=== PATIENT | female | born 1965 | race Caucasian/White ===

== ENCOUNTER 2017-02-16 10:40 | Emergency (ER) | payer OTHER ==
[2017-02-16] MEDS ORDERED: ALBUTEROL 3 ML DEYVIAL IH ONE (11:08)
[2017-02-16] MEDS ORDERED: methylPREDNISolone SOD SUCC 125 MG/2 ML VIAL IVP ONE (11:08)
[2017-02-16] MEDS ORDERED: IPRATROPIUM/ALBUTEROL 3 ML DEYVIAL IH ONE (11:08)
[2017-02-16] MEDS ORDERED: NS 1,000 ML IV ONE (11:08)
--- NOTE | 2017-02-16 11:09 | EDPHY ---
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 Patient developed which she thought was allergic rhinitis with a flare of her asthma 6 weeks ago. She began taking Advair. Symptoms continue to worsen and she developed a cough and mild sputum production. Patient had a course of azithromycin which briefly improved her symptoms. However, they returned with frequent, hacking cough, mild shortness of breath, and low-grade fevers. She placed herself on oral prednisone but was unable to tolerated secondary to insomnia. She had a negative chest x-ray on and a negative flu swab since symptom onset. This last week she began to feel worse and started a 2nd z-pack on Thursday, 4 days ago. She's had associated dyspnea, chills, fever of 100.4F, and head pain when coughing. Her cough is mostly dry with some intermittent white sputum. She did not improve and started a course of Augmentin yesterday. She continues to take high-dose Advair. No cardiac history, blood clots, or family history of clotting disorders. No chest pain, palpitations, vomiting, diarrhea, urinary complaints, lightheadedness. REVIEW OF SYSTEMS: Aside from elements discussed in the HPI, a comprehensive 10-point review of systems was reviewed and is negative. PAST MEDICAL HISTORY: Asthma, Mirena IUD SOCIAL HISTORY: Internal medicine physician. Nonsmoker. VITAL SIGNS: Reviewed by me GENERAL: Well-developed, well-nourished, pleasant, frequent hacking cough, in no respiratory distress. HEENT: Atraumatic. Eyes: No icterus, no injection. Mouth: moist mucous membranes. No erythema or lesions. Neck: supple with no adenopathy. LUNGS: Clear to auscultation bilaterally, no rhonchi or rales. Wheezy cough. CARDIAC: Tachycardic rate, no rubs, murmurs or gallops. ABDOMEN: Soft, nontender, nondistended, bowel sounds normal. BACK: No CVA tenderness. EXTREMITIES: No trauma. No edema. Range of motion is normal throughout. NEURO: Alert and oriented, grossly nonfocal. SKIN: Warm and dry, no rash. PSYCHIATRIC: Normal mentation, no agitation. Portions of this note were transcribed by a certified court/medical interpreter. I personally performed a history, physical exam, medical decision making, and confirmed accuracy of information the transcribed note. ED Course: This is a normally healthy 51 y/o female who presents with a 6-week history of cough and dyspnea. She has treated herself with increased Advair dosing and multiple rounds of antibiotics without lasting improvement and complains of worsening symptoms over the last week. She had a negative chest x-ray 3 weeks ago. She has a frequent, hacking and wheezing cough on exam, but her breath sounds are clear. She is afebrile here, though she feels warm to the touch. She is tachycardic in the 120 range. Plan for EKG, chest CTA, symptom management, IV, and labs including CBC, CHEM, troponin, d-dimer, BNP, lactic acid, BHCG, and flu swab. Duo neb, 125mg IV Solumedrol, and 1L IV NS administered. The 12 lead EKG was interpreted by myself. EKG shows sinus rhythm rate 94. See hard copy and/or "tracemaster" electronic copy for interpretation. Patient's cough improved after DuoNeb. She has no white count, negative troponin, negative D-dimer. Negative lactic acid. Chest CTA shows nodular infiltrate in the right upper lobe and at the right lung base. This appears most likely to be a partially treated pneumonia. I discussed results with the patient during reassessment. She has not been hypoxemic at any point during her stay here. She feels ready for discharge home and will be given scripts for Levaquin, duo nebs, Tessalon pearls, and prednisone. She understands she needs to be followed closely by pulmonology until her pneumonia has completely resolved. Her course was discussed with Dr. Arenas. Return precautions given. She is comfortable with plan. MDM: Differential diagnosis for the patient's shortness of breath was considered including but not limited to pulmonary infectious processes, COPD exacerbation, pulmonary emboli, pulmonary edema, congestive heart failure, and cardiac causes. Differential diagnosis for the patient's cough was considered including but not limited to viral versus bacterial bronchitis, asthma, COPD, pulmonary emboli, upper respiratory infection, lower respiratory infection, and bronchospasm. - Data Points Imaging Results: Imaging Impressions Chest/Thorax CTA 02/16/17 11:56 Impression: 1. No evidence for pulmonary embolus. 2. Probable resolving pneumonia with residual nodularity in the right lower lobe at the lung base and centrally in the right upper lobe. As there is a right upper lobe area of more focal nodularity recommend following to clear to ensure resolution. Mild underlying bronchitis. Results called and discussed with Tita Mas MD, at 1243 hours 16 Feb 2017. [email or web address] Imaging: Discussed imaging studies w/ call manager Radiologist, I viewed and interpreted images myself Laboratory Results: Laboratory Results 02/16/17 11:20 02/16/17 11:20 02/16/17 02/16/17 02/16/17 11:30 11:20 11:20 WBC RBC Hgb Hct MCV MCH MCHC RDW Plt Count MPV Neut % (Auto) Lymph % (Auto) Sibley % (Auto) Eos % (Auto) Baso % (Auto) Nucleat RBC Rel Count Absolute Neuts (auto) Absolute Lymphs (auto) Absolute Monos (auto) Absolute Eos (auto) Absolute Basos (auto) Absolute Nucleated RBC Immature Gran % Immature Gran # D-Dimer < 0.27 ug/mLFEU ug/mLFEU (0.00-0.50) VBG Lactic Acid Sodium Potassium Chloride Carbon Dioxide Anion Gap BUN Creatinine Estimated GFR Glucose Calcium Troponin I NT-Pro-B Natriuret Pep Beta HCG, Qual NEGATIVE Influenza A & B (PCR) NEGATIVE FOR FLU (NEGATIVE) 02/16/17 02/16/17 02/16/17 11:20 11:20 11:20 WBC 7.02 10^3/uL 10^3/uL (3.80-9.50) RBC 4.05 10^6/uL L 10^6/uL (4.18-5.33) Hgb 12.9 g/dL g/dL (12.6-16.3) Hct 38.4 % % (38.0-47.0) MCV 94.8 fL fL (81.5-99.8) MCH 31.9 pg pg (27.9-34.1) MCHC 33.6 g/dL g/dL (32.4-36.7) RDW 12.3 % % (11.5-15.2) Plt Count 189 10^3/uL 10^3/uL (150-400) MPV 10.1 fL fL (8.7-11.7) Neut % (Auto) 80.8 % H % (39.3-74.2) Lymph % (Auto) 9.7 % L % (15.0-45.0) Sibley % (Auto) 8.5 % % (4.5-13.0) Eos % (Auto) 0.3 % L % (0.6-7.6) Baso % (Auto) 0.4 % % (0.3-1.7) Nucleat RBC Rel Count 0.0 % % (0.0-0.2) Absolute Neuts (auto) 5.67 10^3/uL 10^3/uL (1.70-6.50) Absolute Lymphs (auto) 0.68 10^3/uL L 10^3/uL (1.00-3.00) Absolute Monos (auto) 0.60 10^3/uL 10^3/uL (0.30-0.80) Absolute Eos (auto) 0.02 10^3/uL L 10^3/uL (0.03-0.40) Absolute Basos (auto) 0.03 10^3/uL 10^3/uL (0.02-0.10) Absolute Nucleated RBC 0.00 10^3/uL 10^3/uL (0-0.01) Immature Gran % 0.3 % % (0.0-1.1) Immature Gran # 0.02 10^3/uL 10^3/uL (0.00-0.10) D-Dimer VBG Lactic Acid 1.4 mmol/L mmol/L (0.7-2.1) Sodium 141 mEq/L mEq/L (134-144) Potassium 3.9 mEq/L mEq/L (3.5-5.2) Chloride 103 mEq/L mEq/L (97-110) Carbon Dioxide 28 mEq/l mEq/l (22-31) Anion Gap 10 mEq/L mEq/L (8-16) BUN 15 mg/dL mg/dL (7-23) Creatinine 1.1 mg/dL H mg/dL (0.6-1.0) Estimated GFR 53 Glucose 103 mg/dL H mg/dL (70-100) Calcium 9.5 mg/dL mg/dL (8.5-10.4) Troponin I < 0.012 ng/mL ng/mL (0-0.034) NT-Pro-B Natriuret Pep 51 pg/mL pg/mL (0-125) Beta HCG, Qual Influenza A & B (PCR) Medications Given: Discontinued Medications Albuterol (Proventil Neb) 3 ml IH EDNOW ONE Stop: 02/16/17 11:09 Last Admin: 02/16/17 11:32 Dose: 3 ml Albuterol/Ipratropium (Duoneb) 3 ml IH EDNOW ONE Stop: 02/16/17 11:09 Last Admin: 02/16/17 11:21 Dose: 3 ml Sodium Chloride (Ns) 1,000 mls @ 0 mls/hr IV ONCE ONE PRN Reason: Wide Open Stop: 02/16/17 11:09 Last Admin: 02/16/17 11:21 Dose: 1,000 mls Levofloxacin (Levaquin) 750 mg PO EDNOW ONE PRN Reason: Protocol Stop: 02/16/17 13:06 Last Admin: 02/16/17 13:13 Dose: 750 mg Methylprednisolone Sodium Succinate (Solu-Medrol) 125 mg IVP EDNOW ONE Stop: 02/16/17 11:09 Last Admin: 02/16/17 11:21 Dose: 125 mg General Time Seen by Provider: 02/16/17 10:47 Initial Vital Signs: Initial Vital Signs Temperature (C) 36.8 C 02/16/17 10:41 Heart Rate 126 H 02/16/17 10:41 Respiratory Rate 20 02/16/17 10:41 Blood Pressure 138/81 H 02/16/17 10:41 O2 Sat (%) 94 02/16/17 10:41 O2 Delivery Mode Room Air Allergies/Adverse Reactions: No Known Allergies Allergy (Verified 02/16/17 10:41) Home Medications: Medication Instructions Recorded AZITHROMYCIN [Z-PACK] 250 mg PO DAILY 02/16/17 Amox Tr/Potassium Clavulanate 1 each PO 02/16/17 [Augmentin 1000MG ER Tablet (*)] Benzonatate [Tessalon Pearles (RX)] 100 mg PO TID PRN #20 cap 02/16/17 Fluticasone/Salmeter 250/50Mcg 1 each IH 02/16/17 [Advair 250/50 (*)] Ipratropium/Albuterol [Duoneb (*)] 3 ml IH Q4HRS PRN #20 deyvial 02/16/17 Levonorgestrel [Mirena] 1 each IY 02/16/17 levOFLOXACIN [levAQUIN] 750 mg PO DAILY #10 tab 02/16/17 predniSONE 20 mg PO DAILY #3 tab 02/16/17 Departure - Departure Disposition: Home, Routine, Self-Care Clinical Impression: Cough Pneumonia Qualifiers: Pneumonia type: due to unspecified organism Laterality: right Lung location: upper lobe of lung Qualified Code(s): J18.1 - Lobar pneumonia, unspecified organism Instructions: Pneumonia (ED) Additional Instructions: 1. Take Levaquin as directed. Be sure to complete entire prescription even if you feel better. This medication can cause tendon rupture, so avoid strenuous activity while using it. 2. Use Tylenol and ibuprofen as needed for pain and fever over the next week. 3. Use duo nebulizer treatments as directed for cough and shortness of breath. 4. Take Tessalon pearls as prescribed for cough suppression. 5. Complete prednisone course as prescribed. 6. Follow up with Dr. Arenas, pulmonology, without fail this week. Your pneumonia is nodular in appearance and needs to be followed closely by pulmonology until resolution. 7. Return to the ED for any worsening of condition. Adult Pain & Fever Control: We recommend Acetaminophen (Tylenol) and Ibuprofen (Motrin,Advil) for pain and fever control. When fever is high or pain severe, both drugs can be used at the same time, but at different intervals. Please note the time differences. Your dose is: Acetaminophen 650mg every 4 to 6 hours Ibuprofen 600mg every 6-8 hours with food Note: do not take Acetaminophen with Hydrocodone (Vicodin, Lortab) or Oxycodone (Percocet). These medications also contain Acetaminophen. No more than 3000mg of Acetaminophen should be taken in 24 hours (for an adult). Referrals: ANDREA IRBY [Other] - As per Instructions Cornelius Arenas MD [Medical Doctor] - As per Instructions Prescriptions: Ipratropium/Albuterol [Duoneb (*)] 3 ml IH Q4HRS PRN #20 deyvial PRN Reason: cough Benzonatate [Tessalon Pearles (RX)] 100 mg PO TID PRN #20 cap PRN Reason: Cough levOFLOXACIN [levAQUIN] 750 mg PO DAILY #10 tab predniSONE 20 mg PO DAILY #3 tab Report Scribed for: Tita Mas Report Scribed by: Mirna Gandhi Date of Report: 02/16/17 Time of Report: 10:53
[2017-02-16 11:28] LABS: % IMMATURE GRANULYOCYTES 0.3 % (0.0-1.1); ABSOLUTE IMMATURE GRANULOCYTES 0.02 10^3/uL (0.00-0.10); ADD DIFF? NO; ADD MORPH? NO; ADD SCAN? NO; ATYPICAL LYMPHOCYTE FLAG 30 (0-99); FRAGMENT RBC FLAG 0 (0-99); HEMATOCRIT 38.4 % (38.0-47.0); HEMOGLOBIN 12.9 g/dL (12.6-16.3); LEFT SHIFT FLG 0 (0-99); LIPEMIA HEMOLYSIS FLAG 80 (0-99); MEAN CELL HEMOGLOBIN 31.9 pg (27.9-34.1); MEAN CELL HEMOGLOBIN CONCENTR. 33.6 g/dL (32.4-36.7); MEAN CELL VOLUME 94.8 fL (81.5-99.8); MEAN PLATELET VOLUME 10.1 fL (8.7-11.7); PLATELET CLUMPS FLAG 0 (0-99); PLATELET COUNT 189 10^3/uL (150-400); RED BLOOD CELL COUNT 4.05 10^6/uL (4.18-5.33); RED CELL DISTRIBUTION WIDTH 12.3 % (11.5-15.2)
--- NOTE | 2017-02-16 11:29 | CPEKG ---
Heart Rate: 94 RR Interval: 638 P-R Interval: 120 QRSD Interval: 86 QT Interval: 356 QTC Interval: 446 P Dike: 60 QRS Dike: 65 T Wave Dike: 37 EKG Severity - BORDERLINE ECG - EKG Impression: SINUS RHYTHM EKG Impression: PROBABLE LEFT ATRIAL ABNORMALITY Electronically Signed By: Tita Mas 16-Feb-2017 15:31:13
[2017-02-16 11:40] LABS: ANION GAP 10 mEq/L (8-16); CALCIUM 9.5 mg/dL (8.5-10.4); CARBON DIOXIDE 28 mEq/l (22-31); CHLORIDE 103 mEq/L (97-110); CREATININE 1.1 mg/dL (0.6-1.0); GLOMERULAR FILTRATION RATE 53; GLUCOSE 103 mg/dL (70-100); POTASSIUM 3.9 mEq/L (3.5-5.2); SODIUM 141 mEq/L (134-144)
[2017-02-16 11:52] LABS: TROPONIN I < 0.012 ng/mL (0-0.034)
[2017-02-16] MEDS ORDERED: IOPAMIDOL (ISOVUE 370) 100 ML BTL IV ONE (12:00)
[2017-02-16 12:56] VITALS: RESP 18
[2017-02-16 13:34] VITALS: BP 122/81; PULSE 98; TEMP 98.6; O2SAT 92
== END 2017-02-16 13:34 | disposition home or self-care (01) ==
DX: J18.9 Pneumonia, unspecified organism (principal); J45.909 Unspecified asthma, uncomplicated
CPT/HCPCS: 96374; Q9967

== ENCOUNTER → 2017-04-01 | Outpatient (CLI) | payer OTHER | LOC: FIMAGING 15:35 | DX: Z12.31 Encounter for screening mammogram for malignant neoplasm of breast (principal) | CPT/HCPCS: G0202 ==